=== PATIENT | female | born 1975 | race Caucasian/White ===

== ENCOUNTER 2024-11-24 11:30 | Outpatient (CLI) | payer BC, SELFPAY ==
--- NOTE | ~2024-11-24 | US_ITS ---
Pelvic ultrasound. Clinical History: Irregular menses Technique: Realtime transabdominal and transvaginal scanning of the pelvis was performed. Color flow Doppler and Doppler spectral analysis were performed. Findings: The uterus is anteverted. The endometrial stripe has a thickness of 9 mm. IUD is present i n the cervix. Probable subtle uterine fibroid towards the fundus measuring 4.1 x 5.7 x 4.7 cm. Additi onal hypoechoic fibroid towards the right side measures 3.4 x 4.2 x 2.5 cm. Additional partially exop hytic fibroid towards the fundus measures 3 cm in maximum diameter. There is a 2.9 x 4.0 x 2.1 cm cystic mass which appears to be at the vagina, which could reflect Gart ner's duct cyst. Neither ovary seen. No adnexal mass seen.. There is no evidence of free fluid in the cul de sac. Impression: Multiple uterine fibroids, as above. IUD appears to be within the cervix. 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 Reviewed, dictated and finalized at location . Impression: Multiple uterine fibroids, as above. IUD appears to be within the cervix. 2.9 x 4.0 x 2.1 cm cystic mass in the vagina, possibly large Bridget's duct cys t.
== END 2024-11-24 11:31 | disposition home or self-care (01) ==
LOC: GOSHIMG 11:30
PROVIDERS: PCP Nurse Practitioner Obstetrics & Gynecology; Visit Provider Nurse Practitioner Obstetrics & Gynecology
DX: Z30.431 Encounter for routine checking of intrauterine contraceptive device (principal); D25.9 Leiomyoma of uterus, unspecified; N89.8 Other specified noninflammatory disorders of vagina
CPT/HCPCS: 76830; 76856